=== PATIENT | male | born 1965 | race Caucasian/White ===

== ENCOUNTER 2025-01-25 18:55 | Emergency (ER) | payer OTHER ==
[2025-01-25 19:04] VITALS: BP 135/80; RESP 18; TEMP 98.5; BMI 27.3
[2025-01-25 20:05] LABS: ABSOLUTE IMMATURE GRANULOCYTES 0.01 x10^3/uL (0.0-0.031); BASOPHILS # 0.03 x10^3/uL (0.01-0.08); EOSINOPHIL % 3.2 % (0.8-7.0); EOSINOPHILS # 0.21 x10^3/uL (0.04-0.54); MCHC 33.4 g/dl (32.3-36.5); MEAN CELL VOLUME 91.3 fl (79.0-92.2); MEAN PLT VOLUME 11.6 fl (9.4-12.4); MONOCYTE # 0.41 x10^3/uL (0.30-0.82); MONOCYTE % 6.2 % (5.3-12.2); RDW 11.8 % (12.2-16.1)
[2025-01-25 20:47] LABS: CO2 27.0 mmol/L (21-32); GLUCOSE,RANDOM 195.0 mg/dL (74-106)
[2025-01-25 20:50] LABS: CREATININE 1.0 mg/dL (0.55-1.3); SGOT/AST 44.0 U/L (15-37); SGPT/ALT 75.0 U/L (13-61)
[2025-01-25 20:52] LABS: TOT PROT 7.2 g/dl (6.4-8.2)
[2025-01-25 20:53] LABS: ALK PHOS 89.0 U/L (45-117)
[2025-01-25 21:15] VITALS: PULSE 80
[2025-01-25 23:50] LABS: HIV INTERPRETATION NEGATIVE (NEGATIVE)
[2025-01-26 20:26] LABS: HCV DIAGNOSTIC IN-HOUSE W/RFLX NON-REACTIVE (NONREACTIVE)
== END 2025-01-25 21:22 | disposition home or self-care (01) ==
LOC: JER 18:55
DX: R07.81 Pleurodynia (principal)
CPT/HCPCS: 36415; 71046-TC-FY; 80053; 82550; 83690; 84484; 85025; 85379; 86803; 87389; 93005; 93010; 99285-25